=== PATIENT | male | born 1945 | race Asian ===

== ENCOUNTER 2019-01-11 15:04 | Emergency (ER) | payer OTHER ==
[2019-01-11 15:13] VITALS: BP 139/60
--- NOTE | 2019-01-11 15:16 | UC ---
Skin Complaint HPI - HPI Summary HPI Summary: 73 yo male presents with rash. He tells me that 2 weeks ago he developed a mild red rash to his right anterior thigh. He swims a lot in the public pool at the [facility] and says it has been very busy lately with many families and children - he attributed his skin irritation to that. Since that time he has developed some blistering to the area with increased redness. Today developed yellow crusting and drainage from the blisters with mild pain. He has been feeing well otherwise and denies fevers, chills, SOB, abdominal pain, n/v. No hx of MRSA. - History of Current Complaint Chief Complaint: UCRas Time Seen by Provider: 01/11/19 15:10 Stated Complaint: RASH Hx Obtained From: Patient Onset/Duration: Gradual Onset Onset Severity: Mild Current Severity: Mild Pain Intensity: 3 Pain Scale Used: 0-10 Numeric - Allergy/Home Medications Allergies/Adverse Reactions: Allergies Allergy/AdvReac Type Severity Reaction Status Date / Time No Known Allergies Allergy Verified 01/11/19 15:08 PMH/Surg Hx/FS Hx/Imm Hx Respiratory History: Asthma - Surgical History Surgical History: Yes Surgery Procedure, Year, and Place: Lt KNEE - REPAIR- W/ SCREWS. CATARACT - Family History Known Family History: Positive: Unknown - Social History Occupation: Employed Part-time Lives: With Family Alcohol Use: Occasionally Alcohol Amount: 2 GLASSES OF WINE DAILY Substance Use Type: None Smoking Status (MU): Former Smoker When Did the Patient Quit Smoking/Using Tobacco: A TEENAGER Review of Systems All Other Systems Reviewed And Are Negative: Yes Constitutional: Positive: Negative Skin: Positive: Rash Respiratory: Positive: Negative Cardiovascular: Positive: Negative Gastrointestinal: Positive: Negative Neurovascular: Positive: Negative Musculoskeletal: Positive: Negative Neurological: Positive: Negative Psychological: Positive: Negative Physical Exam - Summary Physical Exam Summary: GENERAL: NAD. WDWN. No pain distress. SKIN: RIGHT ANTERIOR THIGH: cluster of small vesicles with moderate yellow thin watery discharge and crusting. Mild surrounding erythema extending from proximal thigh to mid 2/3 thigh. NTTP. Mild warmth. NECK: Supple. Nontender. No lymphadenopathy. CHEST: No accessory muscle use. Breathing comfortably and in no distress. CV: Pulses intact. Cap refill <2seconds NEURO: Alert. PSYCH: Age appropriate behavior. Triage Information Reviewed: Yes Vital Signs: Initial Vital Signs Temp 98.5 F 01/11/19 15:05 Pulse 74 01/11/19 15:05 Resp 16 01/11/19 15:05 BP 139/60 01/11/19 15:05 Pulse Ox 97 01/11/19 15:05 Vital Signs Reviewed: Yes Course/Dx - Course Course Of Treatment: Suspect cellulitis with strep given honey colored crusting and drainage. Culture obtained. Will place him on augmentin and bactroban cream. In the clinic the wound was cleansed with NS, bactroban applied, and dressed with an ABD pad and wrap. Advised to change dressing daily until well healed. - Diagnoses Provider Diagnosis: Cellulitis of right thigh Discharge - Sign-Out/Discharge Documenting (check all that apply): Patient Departure All imaging exams completed and their final reports reviewed: No Studies - Discharge Plan Condition: Stable Disposition: HOME Prescriptions: Amoxicillin/Clavulanate TAB* [Augmentin TAB 875*] 875 mg PO BID #14 tab Mupirocin 2% OINT* [Bactroban 2 % Oint*] 1 applic TOPICAL BID #1 tube Patient Education Materials: Cellulitis (ED) Referrals: Esequiel Parra MD [Primary Care Provider] - Additional Instructions: If you develop a fever, shortness of breath, chest pain, new or worsening symptoms - please call your PCP or go to the ED immediately. 1) Keep the area covered at all times and change the dressing daily until well healed (likely 5-7 days) 2) Apply a small amount of the bactroban ointment on the bandage daily 3) Take your antibiotic as directed 4) If you develop a fever, streaking, increased redness/drainage, or new blisters - please be rechecked immediately. - Billing Disposition and Condition Condition: STABLE Disposition: Home
[2019-01-11] MEDS ORDERED: Mupirocin 2% OINT* TUBE TOPICAL ONE (15:26)
--- NOTE | 2019-01-12 09:59 | UC ---
- Progress Note Progress Note: Chart review Preliminary wound culture shows no neutrophils or organisms Patient is already on antibiotics No change in plan Course/Dx - Diagnoses Provider Diagnoses: Cellulitis of right thigh Discharge - Sign-Out/Discharge Documenting (check all that apply): Post-Discharge Follow Up All imaging exams completed and their final reports reviewed: No Studies - Discharge Plan Condition: Stable Disposition: HOME Prescriptions: Amoxicillin/Clavulanate TAB* [Augmentin TAB 875*] 875 mg PO BID #14 tab Mupirocin 2% OINT* [Bactroban 2 % Oint*] 1 applic TOPICAL BID #1 tube Patient Education Materials: Cellulitis (ED) Referrals: Esequiel Parra MD [Primary Care Provider] - Additional Instructions: If you develop a fever, shortness of breath, chest pain, new or worsening symptoms - please call your PCP or go to the ED immediately. 1) Keep the area covered at all times and change the dressing daily until well healed (likely 5-7 days) 2) Apply a small amount of the bactroban ointment on the bandage daily 3) Take your antibiotic as directed 4) If you develop a fever, streaking, increased redness/drainage, or new blisters - please be rechecked immediately. - Billing Disposition and Condition Condition: STABLE Disposition: Home
== END 2019-01-11 15:48 | disposition home or self-care (01) ==
LOC: UCEAST 15:04
DX: L03.115 Cellulitis of right lower limb (principal); J45.909 Unspecified asthma, uncomplicated; Z87.891 Personal history of nicotine dependence
CPT/HCPCS: 87070; 87077; 87205; 99213; G0463

== ENCOUNTER 2019-01-12 20:45 | Emergency (ER) | payer OTHER ==
[2019-01-12 21:26] VITALS: BP 126/73
[2019-01-12] MEDS ORDERED: Sulfamethox/Trimethoprim DS 800/160* TAB PO ONE (22:09)
--- NOTE | 2019-01-12 22:17 | UC ---
Skin Complaint HPI - HPI Summary HPI Summary: 73-year-old male presents for recheck of cellulitis to his right leg. He was seen at this facility yesterday for the same. He was started on Augmentin 875 mg twice a day has taken a total of 4 doses but states the redness has had a one third increase in size as well as some increased swelling and tenderness to the leg. Denies fever, chills, malaise, calf pain or swelling, chest pain, or shortness of breath. - History of Current Complaint Chief Complaint: UCLowerExtremity Time Seen by Provider: 01/12/19 21:59 Stated Complaint: WOUND RECHECK Hx Obtained From: Patient Pain Intensity: 2 - Allergy/Home Medications Allergies/Adverse Reactions: Allergies Allergy/AdvReac Type Severity Reaction Status Date / Time No Known Allergies Allergy Verified 01/11/19 15:08 PMH/Surg Hx/FS Hx/Imm Hx Respiratory History: Asthma - Surgical History Surgical History: Yes Surgery Procedure, Year, and Place: Lt KNEE - REPAIR- W/ SCREWS. CATARACT - Family History Known Family History: Positive: Unknown - Social History Occupation: Employed Full-time Lives: With Family Alcohol Use: Daily Alcohol Amount: 2 GLASSES OF WINE DAILY Substance Use Type: None Smoking Status (MU): Former Smoker When Did the Patient Quit Smoking/Using Tobacco: A TEENAGER Review of Systems All Other Systems Reviewed And Are Negative: Yes Constitutional: Negative: Fever, Chills Skin: Positive: Other - See HPI Respiratory: Positive: Negative Cardiovascular: Positive: Negative Gastrointestinal: Positive: Negative Genitourinary: Positive: Negative Motor: Negative: Weakness Neurovascular: Negative: Decreased Sensation Musculoskeletal: Negative: Arthralgia, Decreased ROM, Myalgia Neurological: Positive: Negative Is Patient Immunocompromised?: No Physical Exam - Summary Physical Exam Summary: GENERAL APPEARANCE: Well developed, well nourished, alert and cooperative, and appears to be in no acute distress. CARDIAC: Normal S1 and S2. No S3, S4 or murmurs. Rhythm is regular. There is no peripheral edema, cyanosis or pallor. Extremities are warm and well perfused. Capillary refill is less than 2 seconds. Peripheral pulses intact. LUNGS: Clear to auscultation without rales, rhonchi, wheezing or diminished breath sounds. ABDOMEN: Positive bowel sounds. Soft, nondistended, nontender. No guarding or rebound. No masses or hepatosplenomegally. MUSKULOSKELETAL: ROM intact to all extremities. No joint erythema or tenderness. Normal muscular development. Normal gait. EXTREMITIES: Area of confluent vesicular lesions to the mid anterior right thigh with surrounding erythema involves the distal 2/3 of the anterior and medial thigh, anterior knee and proximal 1/3 of the lower leg with some increased warmth. SKIN: Skin normal color, texture and turgor. Triage Information Reviewed: Yes Vital Signs: Initial Vital Signs Temp 97.0 F 01/12/19 21:22 Pulse 75 01/12/19 21:22 Resp 16 01/12/19 21:22 BP 126/73 01/12/19 21:22 Pulse Ox 95 01/12/19 21:22 Vital Signs Reviewed: Yes Course/Dx - Course Course Of Treatment: 73-year-old male presents for recheck of cellulitis to his right leg. He was seen at this facility yesterday for the same. He was started on Augmentin 875 mg twice a day has taken a total of 4 doses but states the redness has had a one third increase in size as well as some increased swelling and tenderness to the leg. Denies fever, chills, malaise, calf pain or swelling, chest pain, or shortness of breath. Afebrile. Vital signs stable. Patient had an area of confluent vesicular lesions to the mid anterior right thigh with surrounding erythema involves the distal 2/3 of the anterior and medial thigh, anterior knee and proximal 1/3 of the lower leg with some increased warmth. Remainder of exam was unremarkable. The wound culture that was obtained yesterday is still pending. Considering the significant increase in redness and swelling without fever or chills I'm going to continue to treat him outpatient and change his antibiotic to Bactrim DS twice a day 10 days to provide for better coverage for MRSA. He was given the first dose in the clinic as well as a dose for in the morning. He is to follow-up with his primary care provider within 3- 5 days for a recheck of his symptoms. Anticipatory guidance and warning symptoms requiring immediate evaluation in the emergency room were reviewed with the patient. Verbalizes understanding and agrees with plan of care. - Differential Diagnoses - Skin Complaint Differential Diagnoses: Cellulitis, MRSA - Diagnoses Provider Diagnosis: Cellulitis of right thigh Discharge - Sign-Out/Discharge Documenting (check all that apply): Patient Departure All imaging exams completed and their final reports reviewed: No Studies - Discharge Plan Condition: Stable Disposition: HOME Prescriptions: Sulfamethox/Trimethoprim DS* [Bactrim DS 800/160 TAB*] 1 tab PO BID #18 tab Patient Education Materials: MRSA (Methicillin-Resistant Staphylococcus Aureus ) (ED), Cellulitis (ED) Referrals: Esequiel Parra MD [Primary Care Provider] - Additional Instructions: With the worsening of your cellulitis I would like to switch your antibiotic to cover for the possibility of a MRSA infection. Stop the Augmentin. Take Bactrim DS one tablet twice a day for 10 days. We gave you the first dose of this in the clinic as well as a dose to take in the morning. Continue to use the mupirocin ointment as previously directed. Take acetaminophen (Tylenol) or ibuprofen (Advil, Motrin) according to directions as needed for pain. Follow-up with your primary care provider within 3-5 days for recheck of your symptoms. Seek immediate medical attention in the emergency room if you develop a fever greater than 100.5 F, you continue to have rapid spreading of the redness, have severe pain that is not managed with acetaminophen or ibuprofen, increased swelling of the leg, or any worsening of symptoms. - Billing Disposition and Condition Condition: STABLE Disposition: Home
== END 2019-01-12 22:30 | disposition home or self-care (01) ==
LOC: UCEAST 20:45
DX: L03.115 Cellulitis of right lower limb (principal); J45.909 Unspecified asthma, uncomplicated; Z87.891 Personal history of nicotine dependence
CPT/HCPCS: 99212; A9270-GY; G0463